=== PATIENT | male | born 1990 | race Caucasian/White ===

== ENCOUNTER 2016-12-28 00:51 | Emergency (ER) | payer OTHER ==
[2016-12-28 01:03] VITALS: TEMP 97.9; O2SAT 95
--- NOTE | 2016-12-28 01:33 | EDPHY ---
General Narrative: CHIEF COMPLAINT: Fall, lacerations HISTORY OF PRESENT ILLNESS: Patient reports lacerations to the right hand after falling while carrying a glass. This was at work. This happened just prior to arrival. He has lacerations to the right little finger, ring finger, middle finger. There is glass in the middle finger. There was a small piece of glass in the thumb that he has removed prior to arrival. Pain is [id number]. Tolerated well. No numbness or tingling. Bleeding maintained with pressure. No wrist pain. No elbow pain. No shoulder pain. No head strike or loss of consciousness. Tetanus is up-to-date less than 3 years ago. No other associated complaints or modifying factors. TIME OF INJURY: Less than 1 hour prior to arrival TETANUS STATUS: Two thousand fourteen MEDICAL/SURGICAL/SOCIAL HISTORY: No medical problems or surgical history. REVIEW OF SYSTEMS: Ten systems reviewed and are negative unless otherwise noted in the HPI EXAMINATION General Appearance: Alert, no distress Head: normocephalic, atraumatic Cardiovascular: Pulses normal throughout. Symmetric radial pulses 2+. Brisk cap refill Neurological: A&O, sensory symmetric, interossei strength symmetric. No wrist drop. Skin: Warm and dry, no rash did lacerations to the right little, middle and ring fingers as noted below. He is neurovascular intact distal to the lacerations. Foreign body was visualized directly and on x-ray. These have been removed Laceration 1. Right middle finger, volar over the distal and middle phalanges. Foreign body has been removed and there are sub cm, superficial lacerations. Laceration 2. Right ring finger, volar, 2 cm curvilinear. No foreign body. No exposure of the flexor tendon. Laceration 3. Right pinky finger, volar, 2 cm curvilinear, no foreign body. No exposure of the flexor tendon. Extremities: Tenderness over the areas of laceration on the right fingers. There is no tenderness of the hand, wrist or elbow. Range of motion is intact and symmetric to the left upper many. DIFFERENTIAL DIAGNOSES: Including but not limited to laceration, foreign body, laceration with foreign body, laceration with tendon injury, complex laceration MDM: 1:20 a.m. Mechanical fall with lacerations to the right pinky, ring and middle fingers. No lacerations of the right index finger, right thumb or palm. There were 2 small pieces of radiopaque foreign body on the x-ray that were removed from the right middle finger. These were apparent by direct visualization and x-ray. These have been removed post digital block. All 3 fingers that have lacerations have been blocked without complication. Proceed with irrigation and closure. 2:00 a.m. Lacerations of the right pinky and ring fingers that required suture repair. The right middle finger lacerations are superficial and had foreign body that have been removed. He is neurovascular intact pre and postprocedure. This is a work related injury, thus he is instructed to follow up with worker's compensation Clinic for definitive care tomorrow. ER precautions discussed. Tetanus is up-to-date. Return here or worker's compensation Clinic in 7-10 days for suture removal. PROCEDURE: Digital Block, 1. Indication: Finger laceration Consent: Verbal Location: Right middle finger Anesthesia: Lidocaine 1% plain, 0.25% Marcaine plain, 5mL Description: Base of the finger was prepped. The above was infused without difficulty. Tolerated well. Good anesthesia. Complications: None PROCEDURE: Digital Block, 2. Indication: Finger laceration Consent: Verbal Location: Right middle finger Anesthesia: Lidocaine 1% plain, 0.25% Marcaine plain, 5mL Description: Base of the finger was prepped. The above was infused without difficulty. Tolerated well. Good anesthesia. Complications: None PROCEDURE: Digital Block, 3. Indication: Finger laceration Consent: Verbal Location: Right pinky finger Anesthesia: Lidocaine 1% plain, 0.25% Marcaine plain, 5mL Description: Base of the finger was prepped. The above was infused without difficulty. Tolerated well. Good anesthesia. Complications: None PROCEDURE: Laceration repair, 1 Consent: Verbal Location: Right ring finger, volar Length of repair: 2 cm, curvilinear Complexity: Simple Layer involvement: Single Anesthesia: Digital block Irrigation: Extensive Debridement: None Procedure description: Following good anesthesia, the wound was copiously irrigated. Wound bed was explored and there is no foreign body noted. Wound borders were approximated well with good hemostasis. Tolerated well without complication. Suture/Staple material: 5-0 Prolene, 3 simple interrupted sutures Wound care: Routine as discussed Suture/Staple removal: 7-10 Days PROCEDURE: Laceration repair, 2 Consent: Verbal Location: Right little finger, volar Length of repair: 2 cm, curvilinear Complexity: Simple Layer involvement: Single Anesthesia: Digital block Irrigation: Extensive Debridement: None Procedure description: Following good anesthesia, the wound was copiously irrigated. Wound bed was explored and there is no foreign body noted. Wound borders were approximated well with good hemostasis. Tolerated well without complication. Suture/Staple material: 5-0 Prolene, 3 simple interrupted sutures Wound care: Routine as discussed Suture/Staple removal: 7-10 Days Procedure: Foreign body removal Consent: Verbal Location: Right middle finger, distal phalanx and middle phalanx Anesthesia: Digital block as above Description: The right finger was prepped with digital block and chlorhexidine. Two pieces of glass were visualized and removed with forceps without complication. Minimal bleeding postprocedure. Tolerated well. No complication. ED Precautions: Worsening pain. Erythema, edema, cyanosis, pallor, paresthesia or anesthesia. - History Smoking Status: Current every day smoker - Objective Vital Signs: Initial Vital Signs Temperature (C) 97.9 F 12/28/16 00:57 Heart Rate 75 12/28/16 00:57 Respiratory Rate 16 12/28/16 00:57 Blood Pressure 111/63 12/28/16 00:57 O2 Sat (%) 95 12/28/16 00:57 O2 Delivery Mode Room Air Allergies/Adverse Reactions: No Known Allergies Allergy (Verified 12/28/16 00:56) Home Medications: Medication Instructions Recorded Cannabis 12/28/16 Departure - Departure Disposition: Home, Routine, Self-Care Clinical Impression: Laceration of right little finger Qualifiers: Encounter type: initial encounter Damage to nail status: without damage Foreign body presence: without foreign body Qualified Code(s): S61.216A - Laceration without foreign body of right little finger without damage to nail, initial encounter Laceration of right ring finger Qualifiers: Encounter type: initial encounter Damage to nail status: without damage Foreign body presence: without foreign body Qualified Code(s): S61.214A - Laceration without foreign body of right ring finger without damage to nail, initial encounter Laceration of right middle finger with foreign body Qualifiers: Encounter type: initial encounter Damage to nail status: without damage Qualified Code(s): S61.222A - Laceration with foreign body of right middle finger without damage to nail, initial encounter Condition: Good Instructions: Care For Your Stitches (ED), Laceration (ED) Additional Instructions: 1. Daily wound care as discussed 2. Contact your worker's compensation Clinic for follow-up 3. Follow up here or your designated worker's compensation Clinic in 7-10 days for suture removal Referrals: NONE *PRIMARY CARE P,. [Primary Care Provider] - As per Instructions Emma De La Fuente DO [Doctor of Osteopathy] - As per Instructions Stand Alone Forms: Work Comp Follow Up
[2016-12-28 02:26] VITALS: BP 110/70; PULSE 70; RESP 18
== END 2016-12-28 02:24 | disposition home or self-care (01) ==
PROC: 3E0T3BZ Introduction of Anesthetic Agent into Peripheral Nerves and Plexi, Percutaneous Approach (ICD-10-PCS; principal; 2016-12-28)
PROC: 0HQFXZZ Repair Right Hand Skin, External Approach (ICD-10-PCS; principal; 2016-12-28)
PROC: 0HCFXZZ Extirpation of Matter from Right Hand Skin, External Approach (ICD-10-PCS; principal; 2016-12-28)
DX: S61.216A Laceration without foreign body of right little finger without damage to nail, initial encounter (principal); S61.214A Laceration without foreign body of right ring finger without damage to nail, initial encounter; S61.222A Laceration with foreign body of right middle finger without damage to nail, initial encounter; F17.200 Nicotine dependence, unspecified, uncomplicated; W25.XXXA Contact with sharp glass, initial encounter; Y92.69 Other specified industrial and construction area as the place of occurrence of the external cause; Y99.0 Civilian activity done for income or pay; Y93.89 Activity, other specified

== ENCOUNTER 2018-05-15 15:26 | Emergency (ER) | payer MEDICAID, OTHER ==
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
[2018-05-15 16:29] LABS: PLATELET COUNT 212 10^3/uL (150-400)
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
[2018-05-15] MEDS ORDERED: OLANZapine 5 MG TAB PO ONE (21:01)
[2018-05-15] MEDS ORDERED: OLANZapine DISINTEGR 10 MG TAB ONE (21:02)
--- NOTE | 2018-05-17 12:24 | ASMTLCPROG ---
Notes Note: Notes: RE-ASSESSMENT UPDATE NOTE: Met with pt to re-assess MSE. Pt denied having any homicidal ideations/intent/plans to harm/kill anyone. He did acknowledge that he made statements while he was in long term for 90 days. Pt denied any suicidal ideation/intent/plans to kill himself. His behavior for the majority of time in the ED has been unremarkable and cooperative, sleeping much of the time. Pt did not endorse experiencing any auditory/visual hallucinations. He expressed an interest in being able to be released from the ED. In consultation with [facility] ED physician, Kylee Cook MD, and on-call psychiatrist, Baljinder Donohue MD, both concurred that pt does not appear to meet 27-65 criteria requiring psychiatric hospitalization as pt does not appear to be an imminent risk of harm to self/others/gravely disabled due to a mental illness condition. Dr. Donohue provided telephone order read back vacating M1 hold at 1200 hrs. Phoned pt's MOC, Sarina Sotomayor [phone] and informed her that pt was re-assessed and determined that he does not meet criteria to require psychiatric hospitalization and would be discharging from the ED. Date Signed: 05/17/2018 12:22 PM Electronically Signed By:Luis Kulkarni
--- NOTE | 2018-05-17 12:24 | ASMTTCLDSP ---
TLC Discharge Disposition Disposition: Answers: Discharge If Answers: Yes DISCHARGED: Patient/family given suicide hotline info & SAMHSA brochure? Disposition Notes: Notes: Pt stated commitment or ability to keep self safe, denied thoughts of self harm or harm to others. Pt expressed a desire to f/u with [facility]. Pt was given local hotline information and SAMHSA brochure After an Attempt. Discharge Concerns/Recommendations: Notes: In consultation with [facility] ED physician, Kylee Cook MD, and on-call psychiatrist, Baljinder Donohue MD, both concurred that pt does not appear to meet 27-65 criteria requiring psychiatric hospitalization as pt does not appear to be an imminent risk of harm to self/others/gravely disabled due to a mental illness condition. Dr. Donohue provided telephone order read back vacating M1 hold at 1200 hrs. Was patient given the Answers: Not applicable Inpatient Behavioral Health Prohibited Belongings List while in the ED? Psychiatrist vacating M1 Marissa Donohue MD Hold: Type of Hold: Answers: M1/72-hour Hold Hold initiated by: Answers: Police For Transfers, Reason [facility] has no acute male beds available Patient is Being Transferred: Date Signed: 05/17/2018 12:23 PM Electronically Signed By:Luis Kulkarni
[2018-05-17 13:04] VITALS: BP 122/71
== END 2018-05-17 13:05 ==
LOC: EDUNIT#
DX: R45.850 Homicidal ideations (principal)
CPT/HCPCS: 80305; G0480

== ENCOUNTER 2018-07-15 00:36 | Emergency (ER) | payer SELFPAY ==
[2018-07-15] MEDS ORDERED: MICONAZOLE NITRATE 2% 14 GM CREAM TP SCH (01:00)
== END 2018-07-15 01:12 ==
DX: T69.021A Immersion foot, right foot, initial encounter (principal); T69.022A Immersion foot, left foot, initial encounter; F17.200 Nicotine dependence, unspecified, uncomplicated; Z59.0 Homelessness